=== PATIENT | female | born 1965 | race Caucasian/White ===

== ENCOUNTER 2018-10-27 17:30 | Emergency (ER) | payer OTHER ==
[~2018-10-27] VITALS: Ht 165.1 cm; Wt 68.9 kg
[~2018-10-27 17:30] MED LIST: ALBU8.5H8 INH; ASPI-1155 PO; ATOR20TA64 PO; BUDE6HFA INH; CLON0.5T12 PO; COG1 PO; COLE625T9 PO; DEXL60CA4 PO; DICL100G19 TP; ESCI20TA PO; FENO160 PO; LEVE500T9 PO; LORA-258 PO; LORA0.5T PO; LUBI24CA5 PO; METO25TA3 PO; OLME5TAB3 PO; QUET400T12 PO; RANI-368 PO; TOPI25CA2 PO
[2018-10-27 17:36] VITALS: BP_SYST 148
[2018-10-27 19:03] LABS: BASOPHILS # (AUTO) 0.1 K/uL (0.0-0.2); BASOPHILS % (AUTO) 1.8 % (0.0-2.0); EOSINOPHILS # (AUTO) 0.8 K/uL (0.0-0.4); EOSINOPHILS % (AUTO) 11.8 % (0.0-4.0); HEMOGLOBIN 14.2 g/dL (12.0-16.0); LYMPHOCYTES # (AUTO) 2.2 K/uL (1.0-5.5); LYMPHOCYTES % (AUTO) 34.5 % (20.5-51.5); MEAN CORPUSCULAR HEMOGLOBIN 30 pg (27-31); MEAN CORPUSCULAR HGB CONC 34 % (32-36); MEAN CORPUSCULAR VOLUME 89 fL (79.0-98.0); MONOCYTES # (AUTO) 0.4 K/uL (0.0-1.0); MONOCYTES % (AUTO) 5.9 % (1.7-9.3); PLATELET COUNT (AUTO) 189 K/uL (130-430); RED CELL DISTRIBUTION WIDTH 14.4 % (9.0-15.0); WHITE BLOOD COUNT (AUTO) 6.5 K/uL (4.8-10.8)
[2018-10-27 19:13] LABS: CALCIUM 9.6 mg/dL (8.4-11.0); CREATININE 0.86 mg/dL (0.55-1.30); POTASSIUM 4.1 mmol/L (3.5-5.1)
[2018-10-27 19:20] LABS: TOTAL BILIRUBIN 0.6 mg/dL (0.0-1.0)
[2018-10-27 20:48] VITALS: BP_SYST 110
== END 2018-10-27 20:48 | disposition home or self-care (01) ==
LOC: SED 17:30
DX: K59.00 Constipation, unspecified (principal); J45.909 Unspecified asthma, uncomplicated; K21.9 Gastro-esophageal reflux disease without esophagitis; I10 Essential (primary) hypertension; Z98.51 Tubal ligation status; Z88.1 Allergy status to other antibiotic agents; Z88.5 Allergy status to narcotic agent; Z88.0 Allergy status to penicillin; Z88.6 Allergy status to analgesic agent; Z88.8 Allergy status to other drugs, medicaments and biological substances; Z91.041 Radiographic dye allergy status; Z79.899 Other long term (current) drug therapy
CPT/HCPCS: 36415; 80053; 81002; 83690-TC; 85025; 99284